=== PATIENT | male | born 1985 | race Caucasian/White ===

== ENCOUNTER 2020-06-18 03:51 | Emergency (ER) | payer OTHER ==
[~2020-06-18] VITALS: Ht 170.2 cm; Wt 129.3 kg
--- NOTE | 2020-06-18 04:57 | NUR ---
Pt. reported to the ER with top L foot pain, tingling sensation, shooting up the back of his leg that started 06/14/20. NKDA. Hx appendectomy age 12. on no home meds. He woke up 06/14 got out of bed and felt the pain, it worsen next day 06/15, visited Urgent care where he got an x-ray that was negative and Ketorolac IM. The pain went away and return 06/17. he has been taking acetaminophen and ibuprofen without relief.
[2020-06-18] MEDS ORDERED: TRAM50TA2 PO ×2 (05:46→05:47)
--- NOTE | 2020-06-18 06:01 | NUR ---
discharge papers and prescription given to pt. Pneumatic Walking boot applied to L leg. All questions answered. Education given on medication dosage and frequency, keeping weight of L foot and how to use and maintain ortho boots.
[2020-06-18 06:06] VITALS: BP 140/89
== END 2020-06-18 06:07 | disposition home or self-care (01) ==
LOC: ER 03:55
DX: M85.672 Other cyst of bone, left ankle and foot (principal)
CPT/HCPCS: 73630-TC